=== PATIENT | female | born 1940 | race Caucasian/White ===

== ENCOUNTER → 2018-09-09 | Outpatient (CLI) | payer OTHER ==
[~2018-09-09] MED LIST: ADULT LOW DOSE81 MG PO; APAP500 PO; ASPIRIN BUFFER325 MG PO; ASPIRIN325 PO; BENADRYL ALLE12.5 MG PO; BETASEPT 4% SU120 M1 TP; BYETTA PEN 11 PENINJ SC; CLARITIN5 MG/5 ML PO; COQ10 SG 100 S1 EACH PO; COREG CR20 MG PO; DARVOCET-N 1001 EACH PO; FISH OIL 1,2001 EAC3 PO; GLUCOPHAGE1000 MG PO; GLUCOSAMINE &1 EACH PO; HYDROCHLOROTHIA25 M1 PO; IBUPROFEN 400400 M1 PO; IRON325 PO; LIPITOR40 MG PO; LISINOPRIL20 MG PO; LOPRESSOR 12.12.5 MG PO; LOVAZA1000 MG PO; MAXZIDE-25 TABL1 TA1 PO; MULTI-VITAMIN1 EAC1 PO; ONCE DAILY1 EACH PO; OSTERA TABLET1 EACH PO; PERCOCET 5-3251 EACH PO; PLAVIX 75 MG TA75 MG PO; PREVACID DIS; TOPROL XL25 MG PO; TRICOR145 MG PO; TRILIPIX45 MG PO; VITAMIN D-32000 UNIT PO; ZYRTEC10 M2 PO
== END ==
LOC: NUC 08:34
DX: M84.374A Stress fracture, right foot, initial encounter for fracture (principal); X58.XXXA Exposure to other specified factors, initial encounter; Y93.89 Activity, other specified; Y92.89 Other specified places as the place of occurrence of the external cause; Y99.8 Other external cause status; Z78.0 Asymptomatic menopausal state

== ENCOUNTER → 2020-04-20 | Outpatient (CLI) | payer OTHER | LOC: SJCVCIMAG 01-26 16:14 | PROVIDERS: ATTEND Internal Medicine | DX: I08.3 Combined rheumatic disorders of mitral, aortic and tricuspid valves (principal); I25.10 Atherosclerotic heart disease of native coronary artery without angina pectoris; R00.1 Bradycardia, unspecified; I10 Essential (primary) hypertension; E11.9 Type 2 diabetes mellitus without complications; I65.23 Occlusion and stenosis of bilateral carotid arteries; D50.9 Iron deficiency anemia, unspecified; E78.2 Mixed hyperlipidemia; Z95.1 Presence of aortocoronary bypass graft; Z79.899 Other long term (current) drug therapy; Z87.891 Personal history of nicotine dependence ==

== ENCOUNTER → 2020-10-19 | Outpatient (CLI) | payer OTHER | LOC: SJCVC 13:27 | PROVIDERS: ATTEND Internal Medicine | DX: R00.1 Bradycardia, unspecified (principal); I25.10 Atherosclerotic heart disease of native coronary artery without angina pectoris; I35.9 Nonrheumatic aortic valve disorder, unspecified; E78.5 Hyperlipidemia, unspecified; I10 Essential (primary) hypertension; I65.23 Occlusion and stenosis of bilateral carotid arteries; E11.9 Type 2 diabetes mellitus without complications; D50.9 Iron deficiency anemia, unspecified; Z79.82 Long term (current) use of aspirin; Z79.899 Other long term (current) drug therapy; Z87.891 Personal history of nicotine dependence ==

== ENCOUNTER → 2020-11-18 | Outpatient (CLI) | payer OTHER | LOC: SJCVCIMAG 08:54 | PROVIDERS: ATTEND Internal Medicine | DX: I65.23 Occlusion and stenosis of bilateral carotid arteries (principal); I70.202 Unspecified atherosclerosis of native arteries of extremities, left leg; E78.5 Hyperlipidemia, unspecified; I10 Essential (primary) hypertension; E78.2 Mixed hyperlipidemia; E11.9 Type 2 diabetes mellitus without complications; Z79.82 Long term (current) use of aspirin; Z79.84 Long term (current) use of oral hypoglycemic drugs; Z79.899 Other long term (current) drug therapy; Z87.891 Personal history of nicotine dependence ==

== ENCOUNTER → 2021-04-05 | Outpatient (CLI) | payer OTHER | LOC: SJCVC 15:00 | PROVIDERS: ATTEND Internal Medicine | DX: R00.1 Bradycardia, unspecified (principal); I25.10 Atherosclerotic heart disease of native coronary artery without angina pectoris; I34.0 Nonrheumatic mitral (valve) insufficiency; E78.5 Hyperlipidemia, unspecified; I10 Essential (primary) hypertension; I65.23 Occlusion and stenosis of bilateral carotid arteries; E11.9 Type 2 diabetes mellitus without complications; D50.9 Iron deficiency anemia, unspecified; K59.00 Constipation, unspecified; K76.0 Fatty (change of) liver, not elsewhere classified; Z87.891 Personal history of nicotine dependence; Z72.89 Other problems related to lifestyle; Z88.5 Allergy status to narcotic agent; Z88.0 Allergy status to penicillin; Z79.82 Long term (current) use of aspirin; Z79.899 Other long term (current) drug therapy; Z95.1 Presence of aortocoronary bypass graft ==

== ENCOUNTER → 2021-10-11 | Outpatient (CLI) | payer OTHER | LOC: SJCVC 10:39 | PROVIDERS: ATTEND Internal Medicine | DX: R94.31 Abnormal electrocardiogram [ECG] [EKG] (principal); I49.8 Other specified cardiac arrhythmias; I25.10 Atherosclerotic heart disease of native coronary artery without angina pectoris; I35.9 Nonrheumatic aortic valve disorder, unspecified; I10 Essential (primary) hypertension; E78.5 Hyperlipidemia, unspecified; I65.23 Occlusion and stenosis of bilateral carotid arteries; E11.9 Type 2 diabetes mellitus without complications; D50.9 Iron deficiency anemia, unspecified; Z88.5 Allergy status to narcotic agent; Z88.8 Allergy status to other drugs, medicaments and biological substances; Z79.82 Long term (current) use of aspirin; Z79.899 Other long term (current) drug therapy; Z72.89 Other problems related to lifestyle; Z87.891 Personal history of nicotine dependence ==